=== PATIENT | female | born 1990 | race Caucasian/White ===

== ENCOUNTER 2016-11-14 11:25 | Emergency (ER) | payer OTHER ==
[~2016-11-14] VITALS: Ht 160 cm; Wt 96.5 kg
[~2016-11-14 11:25] MED LIST: PREN-39 PO
[2016-11-14 11:27] VITALS: Ht 160 cm; Wt 96.5 kg
[2016-11-14] MEDS ORDERED: KETOROLAC 30 MG INJ IM STA (11:47)
[2016-11-14] MEDS ORDERED: SULF1TAB31 PO (12:35)
[2016-11-14] MEDS ORDERED: IBUP-1542 PO (12:36)
[2016-11-14] MEDS ORDERED: HYDR-906 PO (12:36)
[2016-11-14] MEDS ORDERED: CEPH-443 PO (12:36)
--- NOTE | 2016-11-14 12:49 | ERD ---
ER Documentation Chief Complaint Date/Time DATE: 11/14/16 TIME: 12:37 Chief Complaint abcess on sacral area x 3 days HPI Patient is a 26-year-old female presents to the emergency department for concerns of swelling and pain to her sacrum. Patient states her symptoms have been ongoing for the last 3 days. Patient states the pain is worse when sitting or standing up. Patient denies any falls or trauma. Patient denies any fevers, chills, nausea, vomiting, pain radiating down her legs or LOC. Patient denies any drainage or active bleeding from the affected site. Patient denies previous history of pilonidal abscess. ROS All systems reviewed and are negative except as per history of present illness. Medications Home Meds Active Scripts Ibuprofen* (Motrin*) 600 Mg Tab, 600 MG PO Q6, #20 TAB Prov:MARIA G GODINEZ PA-C 11/14/16 Hydrocodone/Acetaminophen ([place] 5-325 Tablet) 1 Each Tablet, 1 TAB PO Q6H Y for PAIN, #10 TAB Prov:MARIA G GODINEZ PA-C 11/14/16 Cephalexin* (Keflex*) 500 Mg Capsule, 500 MG PO QID for 10 Days, CAP Prov:MARIA G GODINEZ-C 11/14/16 Sulfamethoxazole/Trimethoprim* (Bactrim Ds* Tablet) 1 Each Tablet, 1 TAB PO BID , #20 TAB Prov:MARIA G GODINEZ-C 11/14/16 Reported Medications Vits W-Ca,Fe,Fa(<1MG) ( Vitamins) 1 Tab Tablet, 1 TAB PO DAILY 08/25/13 Allergies Allergies: Coded Allergies: No Known Drug Allergy (Verified Allergy, Unknown, 05/09/14) PMhx/Soc Medical and Surgical Hx: pt denies Medical Hx History of Surgery: Yes (cholecystectomy) Hx Alcohol Use: No Hx Substance Use: No Smoking Status: Never smoker FmHx Family History: No diabetes Physical Exam Vitals Vital Signs Date Time Temp Pulse Resp B/P Pulse Ox O2 Delivery O2 Flow Rate FiO2 11/14/16 11:27 98.9 104 18 151/82 99 Physical Exam GENERAL: Well-developed, well-nourished female. Appears in no acute distress. HEAD: Normocephalic, atraumatic. EYES: Pupils are equally reactive bilaterally. EOMs grossly intact. No conjunctival erythema. ENT: Moist mucous membranes. No uvula deviation. No kissing tonsils. NECK: Supple. No meningismus. Normal range of motion of the neck. LUNG: Clear to auscultation bilaterally. No rhonchi, wheezing, rales or coarse breath sounds. HEART: Regular rate and rhythm. No murmurs, rubs or gallops. ABDOMEN: No scars, ecchymosis or rashes noted. Soft, nontender, and nondistended. Positive bowel sounds in all four quadrants. No rebound tenderness , no guarding. (-) McBurney's point tenderness. No CVA tenderness. BUTTOCK: 1 cm erythematous abscess noted above the gluteal fold. + Swelling. Area is tender to palpation. No active bleeding or drainage. No warmth. No fluctuance noted. No lymphatic streaking. EXTREMITIES: Equal pulses bilaterally. No peripheral clubbing, cyanosis or edema. No unilateral leg swelling. NEUROLOGIC: Alert and oriented. Moving all four extremities without any difficulty. Normal speech. Steady gait. SKIN: Normal color. Warm and dry. No rashes or lesions. Results 24 hrs Current Medications Medications (Trade) Dose Ordered Sig/Heidy Route PRN Reason Start Time Stop Time Status Last Admin Dose Admin Ketorolac Tromethamine (Toradol) 30 mg ONCE STAT IM 11/14/16 11:47 11/14/16 11:48 DC 11/14/16 11:59 Procedures/MDM MEDICAL DECISION MAKING: This is a 26-year-old female presents with concerns of pain to her sacrum 3 days.. Vital signs were reviewed. Patient is afebrile. Physical exam findings showed findings consistent with pilonidal cyst. At this time, there is no indication for incision and drainage given that there is no induration. Patient was advised to return to the ED in 2 days for wound recheck. Patient was advised to complete full course of antibiotics. Patient was advised to complete epsom salts soaks in warm water. Low suspicion for perirectal abscess , deep space infection, sacrum fracture. PRESCRIPTIONS: Bactrim, Keflex, ibuprofen, [place] DISCHARGE: At this time, the patient is stable for discharge and outpatient management. Post-procedural wound care was discussed with the patient. I have instructed the patient to promptly return to the ER for any new or worsening symptoms including increasing pain, fever, warmth, redness or swelling. The patient and/ or family expressed understanding of and agreement with this plan. All questions were answered. Home care instructions were provided. Departure Diagnosis: Primary Impression: Pilonidal cyst with abscess Condition: Stable Patient Instructions: Pilonidal Cyst, Infected (Abx Only) Referrals: COMMUNITY CLINICS YOU HAVE RECEIVED A MEDICAL SCREENING EXAM AND THE RESULTS INDICATE THAT YOU DO NOT HAVE A CONDITION THAT REQUIRES URGENT TREATMENT IN THE EMERGENCY DEPARTMENT. FURTHER EVALUATION AND TREATMENT OF YOUR CONDITION CAN WAIT UNTIL YOU ARE SEEN IN YOUR DOCTORS OFFICE WITHIN THE NEXT 1-2 DAYS. IT IS YOUR RESPONSIBILITY TO MAKE AN APPOINTMENT FOR FOLOW-UP CARE. IF YOU HAVE A PRIMARY DOCTOR --you should call your primary doctor and schedule an appointment IF YOU DO NOT HAVE A PRIMARY DOCTOR YOU CAN CALL OUR PHYSICIAN REFERRAL HOTLINE AT IF YOU CAN NOT AFFORD TO SEE A PHYSICIAN YOU CAN CHOSE FROM THE FOLLOWING [facility] [address] [facility] [address] [facility] [address] [facility] [address] [facility] [address] [facility]. [facility]. [address] [facility] [facility] YOU HAVE RECEIVED A MEDICAL SCREENING EXAM AND THE RESULTS INDICATE THAT YOU DO NOT HAVE A CONDITION THAT REQUIRES URGENT TREATMENT IN THE EMERGENCY DEPARTMENT. FURTHER EVALUATION AND TREATMENT OF YOUR CONDITION CAN WAIT UNTIL YOU ARE SEEN IN YOUR DOCTORS OFFICE WITHIN THE NEXT 1-2 DAYS. IT IS YOUR RESPONSIBILITY TO MAKE AN APPOINTMENT FOR FOLOW-UP CARE. IF YOU HAVE A PRIMARY DOCTOR --you should call your primary doctor and schedule and appointment IF YOU DO NOT HAVE A PRIMARY DOCTOR YOU CAN CALL OUR PHYSICIAN REFERRAL HOTLINE AT . IF YOU CAN NOT AFFORD TO SEE A PHYSICIAN YOU CAN CHOSE FROM THE FOLLOWING [facility] INSTITUTIONS: [facility] [address] [place] [address] [facility] [address] [place] [address] [facility] [address] [place] [address] Additional Instructions: Sitz baths with Epsom salt advised. Take medication as prescribed. Return emergency department 2 days for wound recheck. Return sooner for any worsening redness, swelling, warmth or fevers. Call your primary care doctor TOMORROW for an appointment during the next 1-2 days.See the doctor sooner or return here if your condition worsens before your appointment time. MARIA G GODINEZ PA-C Nov 14, 2016 12:49
== END 2016-11-14 13:15 | disposition home or self-care (01) ==
LOC: FTE 11:25
DX: L05.01 Pilonidal cyst with abscess (principal)
CPT/HCPCS: 96372; J1885; Z7502

== ENCOUNTER 2016-11-16 10:43 | Emergency (ER) | payer OTHER ==
[~2016-11-16] VITALS: Ht 162.6 cm; Wt 90.0 kg
[~2016-11-16 10:43] MED LIST changes: +CEPH-443 PO; +HYDR-906 PO; +IBUP-1542 PO; +SULF1TAB31 PO
[2016-11-16 10:47] VITALS: Ht 162.6 cm; Wt 90.0 kg
[2016-11-16] MEDS ORDERED: LIDOCAINE 1% (MDV) 20 ML INJ SC ONE (11:30)
[2016-11-16] MEDS ORDERED: HYDROCODONE/APAP (5/325) TAB PO ONE (11:30)
[2016-11-16] MEDS ORDERED: HYDR-906 PO (11:54)
--- NOTE | 2016-11-16 12:07 | ERD ---
ER Documentation Chief Complaint Date/Time DATE: 11/16/16 TIME: 12:06 Chief Complaint recheck lower back abcess, on antibiotics HPI 26-year-old female comes in with a wound check for pilonidal abscess. She was seen here a few days ago was given Keflex and Bactrim, comes in with recurrent pain. She has not had any fevers, chills or drainage. ROS All systems reviewed and are negative except as per history of present illness. Medications Home Meds Active Scripts Hydrocodone/Acetaminophen ([place] 5-325 Tablet) 1 Each Tablet, 1 TAB PO Q6H Y for PAIN, #10 TAB Prov:ARIANA MORALES PA-C 11/16/16 Ibuprofen* (Motrin*) 600 Mg Tab, 600 MG PO Q6, #20 TAB Prov:MARIA G GODINEZ-C 11/14/16 Hydrocodone/Acetaminophen ([place] 5-325 Tablet) 1 Each Tablet, 1 TAB PO Q6H Y for PAIN, #10 TAB Prov:MARIA G GODINEZ-C 11/14/16 Cephalexin* (Keflex*) 500 Mg Capsule, 500 MG PO QID for 10 Days, CAP Prov:MARIA G GODINEZ-C 11/14/16 Sulfamethoxazole/Trimethoprim* (Bactrim Ds* Tablet) 1 Each Tablet, 1 TAB PO BID , #20 TAB Prov:MARIA G GODINEZ-C 11/14/16 Reported Medications Vits W-Ca,Fe,Fa(<1MG) ( Vitamins) 1 Tab Tablet, 1 TAB PO DAILY 08/25/13 Allergies Allergies: Coded Allergies: No Known Drug Allergy (Verified Allergy, Unknown, 05/09/14) PMhx/Soc History of Surgery: Yes (cholecystectomy) Hx Alcohol Use: No Hx Substance Use: No Physical Exam Vitals Vital Signs Date Time Temp Pulse Resp B/P Pulse Ox O2 Delivery O2 Flow Rate FiO2 11/16/16 10:47 98.1 100 18 126/86 99 Physical Exam General: Well-developed, well-nourished. The patient appears in no acute distress. HEENT: Head is normocephalic, atraumatic. No scleral icterus. Neck: Supple. Nontender. Lungs: Clear to auscultation. Normal air movement. Heart: Regular rate and rhythm. S1 and S2 are normal. No murmurs, gallops, or rubs. Abdomen: Nondistended. Extremities: No clubbing or cyanosis. Moving extremities x 4. No weakness. Neurologic: Alert and oriented 3. No focal deficits. Normal speech and gait. Skin: Large pilonidal abscess, there is fluctuance, approximately 4 cm with tenderness to palpation. Results 24 hrs Current Medications Medications (Trade) Dose Ordered Sig/Heidy Route PRN Reason Start Time Stop Time Status Last Admin Dose Admin Lidocaine (Xylocaine 1% (Mdv) 20 ml) 20 ml ONCE ONCE SC 11/16/16 11:30 11/16/16 11:31 DC Acetaminophen/ Hydrocodone Bitart ([place] (5/325)) 1 tab ONCE ONCE PO 11/16/16 11:30 11/16/16 11:31 DC 11/16/16 11:36 Procedures/MDM Abscess Incision and Drainage with irrigation by me: Patient was verbally consented. Location: Pilonidal Anesthesia: Lidocaine 1%, 5 cc Technique: Irrigated. Disrupted loculations w/ instrumentation Packing: None Complications: Neurovascularly intact post procedure 48 hour wound check. Scar minimization instructions given. Patient's skin symptoms have stabilized while they have been evaluated in the department and are appropriate for outpatient care and work up. Exam and w/u not consistent w/ sepsis, deep space infection, or foreign body. MDM: 26-year-old female comes in for a wound check for pilonidal abscess, incision and drainage was performed, there is a copious amount of purulent drainage was able to be removed. Patient is hemodynamically stable, neurovascular intact post procedure. I have advised to continue the antibiotics , do warm compresses at home, she will be given a short course of [place] for pain control. Departure Diagnosis: Primary Impression: Encounter for incision and drainage procedure Additional Impression: Abscess Condition: Good Patient Instructions: Abscess, Incision And Drainage Additional Instructions: Follow up in 2 days in your clinic for wound check. ARIANA MORALES PA-C Nov 16, 2016 12:07
== END 2016-11-16 12:23 | disposition home or self-care (01) ==
LOC: FTE 10:43
DX: L05.01 Pilonidal cyst with abscess (principal)
CPT/HCPCS: 10080; Z7610

== ENCOUNTER 2017-12-14 11:14 | Emergency (ER) | END 2017-12-14 14:21 | disposition home or self-care (01) ==

== ENCOUNTER 2018-02-26 16:04 | Emergency (ER) | END 2018-02-26 19:05 | disposition home or self-care (01) ==

== ENCOUNTER 2018-08-02 08:50 | Inpatient (IN) | payer MEDICAID ==
[~2018-08-02] VITALS: Ht 162.6 cm; Wt 105.6 kg
[~2018-08-02 08:50] MED LIST changes: +ACET325T33 PO; +HYDR-4011 PO; -HYDR-906 PO; +NITR-58 PO
[2018-08-02] MEDS ORDERED: OXYTOCIN 30 UNITS/LR 500 ML IV SCH ×3 (10:00→15:30)
[2018-08-02] MEDS ORDERED: LIDOCAINE 1% (MPF) 30 ML INJ INJ PRN (10:00)
[2018-08-02] MEDS ORDERED: OXYTOCIN 30 UNITS/LR 500 ML IV PRN (10:00)
[2018-08-02] MEDS ORDERED: IBUPROFEN 600 MG TAB PO PRN (10:00)
[2018-08-02] MEDS ORDERED: MISOPROSTOL 200 MCG TAB PR PRN (10:00)
[2018-08-02] MEDS ORDERED: BUTORPHANOL 1 MG INJ IV PRN (10:00)
[2018-08-02] MEDS ORDERED: BUTORPHANOL 2 MG INJ IV PRN (10:00)
[2018-08-02] MEDS ORDERED: AMPICILLIN 2 GM/NS (PMX) 100 ML IV ONE (10:00)
[2018-08-02] MEDS ORDERED: CARBOPROST 250 MCG INJ IM PRN (10:00)
[2018-08-02] MEDS ORDERED: METHYLERGONOVINE 0.2 MG INJ IM PRN (10:00)
[2018-08-02 10:31] VITALS: Ht 162.6 cm; Wt 105.6 kg
[2018-08-02 10:32] VITALS: BP 122/79; PULSE 60; RESP 16
[2018-08-02] MEDS: LACTATED RINGER'S 1,000 ML IV SCH ×2 (12:47→23:22)
--- NOTE | 2018-08-02 17:17 | HP ---
Date/Time of Note Date/Time of Note DATE: 08/02/18 TIME: 17:11 OB - History Hx of Present Free Text/Dictation 28-year-old female 4 para 3 at 39+ weeks gestation admitted for elective induction of labor Last Menstrual Period: October 26, 2017 Estimated Due Date: Aug 02, 2018 : 4 Para: 3 Care: Good Care Ultrasounds: Normal mid trimester US Obstetrical Complications: None Medical Complications: None Past Family/Social History * Past Medical, Surgical, Family and Obstetric Histories reviewed from chart. Blood Type: O+ Rubella: immune RPR/VDRL: Negative GBS Status: Positive HBsAG: Negative OB Admission Exam Vital Signs Vital Signs Vital Signs Date Temp Pulse Resp B/P (MAP) Pulse Ox O2 O2 Flow FiO2 Time Delivery Rate 08/02/18 60 16 122/79 Room Air 10:32 (93) Physical Exam HEENT: WNL Heart: Rhythm Normal Lungs: Clear, Equal Abdomen: WNL Extremities: Normal Reflexes: Normal Cervical Dilatation: 2cm Effacement: 50% Station: -3 Membranes: Intact Heart Rate: 140's Accelerations: Accelerations Present Decelerations: No Decelerations Varibility: Marked Contractions on Admission: None Last 72 hours Lab Results CBC & BMP 08/02/18 12:20 OB Assessment/Plan Other Assessment: Term gestation Possible macrosomia: The EFW = 4380 g, 95%ile based on LMP age Other plan: Will start induction using Pitocin JACKLYN AMOS MD Aug 02, 2018 17:17
[2018-08-02] MEDS: AMPICILLIN 1 GM/NS (PMX) 50 ML IV SCH (20:15)
[2018-08-03] MEDS: AMPICILLIN 1 GM/NS (PMX) 50 ML IV SCH ×4 (00:12→14:21)
[2018-08-03] MEDS: LACTATED RINGER'S 1,000 ML IV SCH ×4 (04:59→14:17)
--- NOTE | 2018-08-03 06:04 | PREAC ---
Date/Time of Note Date/Time of Note DATE: 08/03/18 TIME: 06:03 Anesthesia Eval and Record Evaluation Time Pre-Procedure Interview DATE: 08/03/18 TIME: 06:03 Age 28 Sex female NPO: 8 hrs Preoperative diagnosis labor pain Planned procedure epidural Past Medical History Past Medical History: Includes GI: Obesity : Gestational age: (40.1) Surgery & Anesthesia Issues No known issue Meds Anticoagulation: No Beta Vicki within 24 hr: No Reason Beta Vicki not given: Pt. not on B-Vicki Active Scripts Acetaminophen* (Tylenol*) 325 Mg Tablet, 2 TAB PO Q6 PRN for PAIN AND OR ELEVATED TEMP, #20 TAB Prov:FANTASMA BLACKWELLC 02/26/18 Nitrofurantoin Monohyd Macrocr* (Macrobid*) 100 Mg Capsr, 100 MG PO BID for 14 Days, CAP Prov:AYLA RESENDIZC 12/14/17 Hydrocodone/Acetaminophen ([place] 5-325 Tablet) 1 Each Tablet, 1 TAB PO Q6H PRN for PAIN, #10 TAB Prov:ARIANA MORALESC 11/16/16 Ibuprofen* (Motrin*) 600 Mg Tab, 600 MG PO Q6, #20 TAB Prov:MARIA G GODINEZC 11/14/16 Hydrocodone/Acetaminophen ([place] 5-325 Tablet) 1 Each Tablet, 1 TAB PO Q6H PRN for PAIN, #10 TAB Prov:MARIA G GODINEZC 11/14/16 Cephalexin* (Keflex*) 500 Mg Capsule, 500 MG PO QID for 10 Days, CAP Prov:MARIA G GODINEZC 11/14/16 Sulfamethoxazole/Trimethoprim* (Bactrim Ds* Tablet) 1 Each Tablet, 1 TAB PO BID, #20 TAB Prov:MARIA G GODINEZC 11/14/16 Reported Medications Vits W-Ca,Fe,Fa(<1MG) ( Vitamins) 1 Tab Tablet, 1 TAB PO DAILY 08/25/13 Current Medications Lactated Ringer's 1,000 ml @ 125 mls/hr Q8H IV Last administered on 08/03/18at 04:59; Admin Dose 125 MLS/HR; Start 08/02/18 at 09:50 Ampicillin 50 ml @ 100 mls/hr Q4H IV Last administered on 08/03/18at 04:25; Admin Dose 100 MLS/HR; Start 08/02/18 at 14:00 Butorphanol Tartrate (Stadol) 1 mg Q2H PRN IV .PAIN; Start 08/02/18 at 10:00 Butorphanol Tartrate (Stadol) 2 mg Q2H PRN IV .PAIN; Start 08/02/18 at 10:00 Lidocaine (Xylocaine 1% (Mpf)) 30 ml ONCE PRN INJ .EPISIOTOMY; Start 08/02/18 at 10:00 Oxytocin/Lactated Ringer's 500 ml @ 500 mls/hr ONCE POST IV ; Start 08/02/18 at 10:00 Oxytocin/Lactated Ringer's 500 ml @ 125 mls/hr POST IV ; Start 08/02/18 at 10:00 Ibuprofen (Motrin) 600 mg ONCE PRN PO .PAIN 1-5; Start 08/02/18 at 10:00 Oxytocin/Lactated Ringer's 500 ml @ 0 mls/hr ONCE PRN IV .VAGINAL BLEEDING; Start 08/02/18 at 10:00 Methylergonovine Maleate (Methergine) 0.2 mg ONCE PRN IM .VAGINAL BLEEDING; Start 08/02/18 at 10:00 Carboprost Tromethamine (Hemabate) 250 mcg ONCE PRN IM .VAGINAL BLEEDING; Start 08/02/18 at 10:00 Misoprostol (Cytotec) 1,[address] .VAGINAL BLEEDING; Start 08/02/18 at 10:00 Oxytocin/Lactated Ringer's 500 ml @ 0 mls/hr FOR INDUCTION IV Last administered on 08/02/18at 16:02; Admin Dose 1 MLS/HR; Start 08/02/18 at 15:30 Meds reviewed: Yes Allergies Coded Allergies: No Known Drug Allergy (Verified Allergy, Unknown, 12/14/17) Allergies Reviewed: Yes Labs/Studies Labs Reviewed: Reviewed by anesthesiologist Result Diagram: 08/02/18 1220 Laboratory Tests 08/02/18 12:20 Blood Bank Test 08/02/18 12:20 Antibody Screen NEGATIVE Blood Type O POSITIVE Rh Immune Globulin Candidate NO test: Positive Studies: ECG (n/a), CXR (n/a) Pre-procedure Exam Last vitals Vital Signs Date Temp Pulse Resp B/P (MAP) Pulse Ox O2 O2 Flow FiO2 Time Delivery Rate 08/02/18 60 16 122/79 Room Air 10:32 (93) Airway: Adequate mouth opening Mallampati: Mallampati II Teeth: Normal Lung: Normal Heart: Normal ASA Physical Status ASA physical status: 2 Emergency: None Planned Anesthetic Neuraxial: Epidural Pre-operative Attestations Prior to commencing anesthesia and surgery, the patient was re-evaluated, there was verification of: *The patient's identity *The results of appropriate recent lab work and preoperative vital signs *The above evaluation not changing prior to induction *Anesthetic plan, risk benefits, alternative and complications discussed with patient/family; questions answered; patient/family understands, accepts and wishes to proceed. ALVAREZ THOMPSON MD Aug 03, 2018 06:04
[2018-08-03] MEDS ORDERED: FENTAnyl 2MCG/ML-ROPIV 0.2% 100 ML ONE (06:29)
--- NOTE | 2018-08-03 06:41 | PAC ---
Date/Time of Note Date/Time of Note DATE: 08/03/18 TIME: 06:37 Post-Anesthesia Notes Post-Anesthesia Note Last documented vital signs Vital Signs Date Temp Pulse Resp B/P (MAP) Pulse Ox O2 O2 Flow FiO2 Time Delivery Rate 08/02/18 60 16 122/79 Room Air 10:32 (93) 08/03/18 0631 BP138/67 HR 104 RR 20 Sat 97% temp 98.1 Activity: WNL Respiratory function: WNL Cardiovascular function: WNL Mental status: Baseline Pain reasonably controlled: Yes Hydration appropriate: Yes Nausea/Vomiting absent: No ALVAREZ THOMPSON MD Aug 03, 2018 06:41
[2018-08-03] MEDS ORDERED: ONDANSETRON 4 MG INJ IV PRN (07:00)
[2018-08-03] MEDS ORDERED: FENTAnyl 2MCG/ML-ROPIV 0.2% 100 ML BAG EPI SCH (07:00)
[2018-08-03] MEDS ORDERED: NALOXONE (0.4 MG/ML) INJ IV PRN (07:00)
[2018-08-03] MEDS ORDERED: MINERAL OIL LIGHT 10 ML VIAL TOP ONE (07:30)
[2018-08-03] MEDS ORDERED: KETOROLAC 30 MG INJ IV STA (14:45)
--- NOTE | 2018-08-03 14:45 | LDN ---
Date/Time of Note Date/Time of Note DATE: 08/03/18 TIME: 14:43 Delivery Summary Normal spontaneous vaginal delivery of viable infant over intact perineum Weeks of Gestation 40 weeks and 1 day Placenta Delivered: Spontaneously, Intact & Complete Meconium: Particulate Episiotomy: No Perineal laceration: 1 Laceration repair: First-degree perineal laceration was repaired using 2-0 chromic on a small half needle Anesthesia type: Epidural Estimated blood loss: 200 Sponge & Needle done & correct: Yes All needle counts correct: Yes Any foreign bodies felt in the: No Delivery Information Sex Infant Sex: male Apgars 1 Minute: 9 5 Minute: 9 Suctioning Nose & mouth suctioned at adrian: Yes Delee suction performed: No Umbilical Cord Umbilical cord with: 3 Vessels Cord presentations: no nuchal cord Cord Blood was obtained: Yes Mother & Baby Disposition Disposition Mom & Baby to Maternity; Good: Yes (Mother and baby were recovered in good condition) Mom transferred to: Other (Maternity) Baby to NICU: No JACKLYN AMOS MD Aug 03, 2018 14:44
[2018-08-03] MEDS: LACTATED RINGER'S 1,000 ML IV* SCH ×2 (16:39→19:21)
[2018-08-03 16:45] VITALS: BP 130/80; PULSE 75; RESP 18
[2018-08-03] MEDS ORDERED: OXYTOCIN 30 UNITS/LR 500 ML IV PRN (17:00)
[2018-08-03] MEDS ORDERED: WITCH HAZEL/GLYCERIN PAD PR PRN (17:00)
[2018-08-03] MEDS ORDERED: BENZOCAINE 20% 56 ML SPRAY TOP PRN (17:00)
[2018-08-03] MEDS ORDERED: METHYLERGONOVINE 0.2 MG INJ IM PRN (17:00)
[2018-08-03] MEDS ORDERED: LANOLIN HPA 1 PKT TOP PRN (17:00)
[2018-08-03] MEDS ORDERED: HYDROCODONE/APAP (5/325) TAB PO PRN ×2 (17:00)
[2018-08-03] MEDS ORDERED: CARBOPROST 250 MCG INJ IM PRN (17:00)
[2018-08-03] MEDS ORDERED: MISOPROSTOL 200 MCG TAB PR PRN (17:00)
[2018-08-03] MEDS ORDERED: ZOLPIDEM 5 MG TAB PO PRN (17:00)
[2018-08-03] MEDS ORDERED: DIBUCAINE 1% 30 GM OINT TOP PRN (17:00)
[2018-08-03] MEDS: IBUPROFEN 600 MG TAB PO SCH ×2 (17:37→23:17)
[2018-08-03] MEDS: CEPHALEXIN 500 MG CAP PO SCH ×2 (17:37→23:17)
[2018-08-03 17:45] VITALS: BP 121/62; PULSE 74; RESP 18
[2018-08-03 20:00] VITALS: BP 105/57; PULSE 89; RESP 18
[2018-08-03] MEDS: MAGNESIUM HYDROXIDE 30ML CUP PO SCH (21:00)
[2018-08-03] MEDS: SENNA/DOCUSATE NA (8.6MG/50MG) TAB PO SCH (21:00)
[2018-08-04] VITALS: BP 110/60; PULSE 85; RESP 18
[2018-08-04 04:00] VITALS: BP 104/59; PULSE 77; RESP 20
[2018-08-04] MEDS: IBUPROFEN 600 MG TAB PO SCH ×4 (06:45→23:39)
[2018-08-04] MEDS: CEPHALEXIN 500 MG CAP PO SCH ×4 (06:45→23:39)
[2018-08-04 08:00] VITALS: BP 101/33; PULSE 66; RESP 20
[2018-08-04] MEDS: LACTATED RINGER'S 1,000 ML IV* SCH ×2 (08:39→16:39)
[2018-08-04] MEDS: SENNA/DOCUSATE NA (8.6MG/50MG) TAB PO SCH ×2 (09:00→21:00)
[2018-08-04] MEDS: MAGNESIUM HYDROXIDE 30ML CUP PO SCH ×2 (09:00→21:00)
[2018-08-04 12:00] VITALS: BP 100/68; PULSE 80; RESP 19
--- NOTE | 2018-08-04 14:15 | DS ---
Date/Time of Note Date/Time of Note Home today or next day DATE: 08/04/18 TIME: 14:14 Obstetrical Discharge Record Final Diagnosis Final Diagnosis: Term delivered Other Final Diagnosis Status post vaginal delivery Vaginal Delivery Obstetrical Delivery: Spontaneous, Laceration, Repaired Complications Induction: Yes Condition on Discharge Physical Assessment Last Vitals: See nurse's notes Voiding: Yes Bowel Movement: Yes Breast: Soft, non-tender, Filling Fundus: Firm Abdomen and Incision: Abdomen is soft with present bowel sounds Episiotomy: Perineum is healing well and appears clean Calf Tenderness: No Patient Condition: Good JACKLYN AMOS MD Aug 04, 2018 14:15
--- NOTE | 2018-08-04 14:17 | PD.PPDC ---
[employer] Discharge Instruction Provider Information Physician Information 28-year-old female had vaginal delivery Diagnosis [id number] Final Diagnosis: [id number] Status post vaginal delivery Condition [id number] Patient Condition: Nathg1d Good Diet Cngkt2Tb Diet: Sbgyt1k Resume Regular Diet Activity/Restrictions [id number] Activity: [id number] Normal Activity May Shower [id number] Restrictions: [id number] Nothing in the Vagina [id number] Return to Work or School: [id number] Sep 19, 2018 Follow-up Follow-up with Physician: 2, 4, Week/Weeks (In clinic) Return to clinic for [id number] OB Instructions: Clrxi6d Breast Tenderness Depression Comment: Pelvic rest for 6 weeks JACKLYN AMOS MD Aug 04, 2018 14:17
[2018-08-04] MEDS ORDERED: IBUP-1542 PO ×2 (14:20→18:51)
[2018-08-04 16:00] VITALS: BP 105/64; PULSE 80; RESP 20
[2018-08-04 20:30] VITALS: BP 127/67; PULSE 76; RESP 18
[2018-08-05 04:05] VITALS: BP 101/59; PULSE 73; RESP 18
[2018-08-05] MEDS: CEPHALEXIN 500 MG CAP PO SCH ×2 (05:38→12:07)
[2018-08-05] MEDS: IBUPROFEN 600 MG TAB PO SCH ×2 (05:39→12:07)
[2018-08-05 07:50] VITALS: BP 121/66; PULSE 72; RESP 18
[2018-08-05] MEDS: MAGNESIUM HYDROXIDE 30ML CUP PO SCH (09:00)
[2018-08-05] MEDS ORDERED: DIPHTH/TET/ACEL PERTUSS (ADULT) 0.5 ML VIAL IM* ONE (09:00)
[2018-08-05] MEDS ORDERED: MEASLES,MUMPS,RUBELLA VACCINE INJ SC* ONE (09:00)
[2018-08-05] MEDS ORDERED: VARICELLA VACCINE LIVE/PF 1,350 UNIT/0.5 ML ML SC* ONE (09:00)
[2018-08-05] MEDS: SENNA/DOCUSATE NA (8.6MG/50MG) TAB PO SCH (09:02)
== END 2018-08-05 15:19 | disposition home or self-care (01) | DRG 807 ==
LOC: L-D 08:50 → PP1 08-03 16:34
PROVIDERS: ADMIT Obstetrics & Gynecology; ATTEND Obstetrics & Gynecology
PROC: 10E0XZZ Delivery of Products of Conception, External Approach (ICD-10-PCS; principal; 2018-08-03)
PROC: 0HQ9XZZ Repair Perineum Skin, External Approach (ICD-10-PCS; 2018-08-03)
DX: O36.63X0 Maternal care for excessive fetal growth, third trimester, not applicable or unspecified (principal); Z37.0 Single live birth; O77.0 Labor and delivery complicated by meconium in amniotic fluid; O70.0 First degree perineal laceration during delivery; O99.824 Streptococcus B carrier state complicating childbirth; O99.214 Obesity complicating childbirth; E66.9 Obesity, unspecified; Z3A.39 39 weeks gestation of pregnancy
CPT/HCPCS: 62319; 76815; 85025; 85610; 85730; 86592; 86850; 86900; 86901; 87340; 90716; J0290; J2590; J3010; J7120